=== PATIENT | male | born 1945 | race American Indian/Alaskan Native ===

== ENCOUNTER 2021-05-27 12:06 | Emergency (ER) | payer MEDICARE ==
[2021-05-27 12:12] VITALS: BP 126/84
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
== END 2021-05-27 21:15 | disposition home or self-care (01) ==
LOC: ED 12:06
DX: K62.9 Disease of anus and rectum, unspecified (principal); G89.29 Other chronic pain; M79.605 Pain in left leg
CPT/HCPCS: 99283